=== PATIENT | female | born 1985 | race Caucasian/White ===

== ENCOUNTER 2020-06-04 08:21 | Day surgery (SDC) | payer BC | END 2020-06-04 23:50 | disposition home or self-care (01) | LOC: MOI US 08:21 → MOI MAM 08:45 → MOI US 23:50 | DX: C50.912 Malignant neoplasm of unspecified site of left female breast (principal); Z17.0 Estrogen receptor positive status [ER+] | CPT/HCPCS: 19083; 77065; 88305; 88342; 88360; A4648; G0279 ==